=== PATIENT | male | born 1985 | race Caucasian/White ===

== ENCOUNTER 2019-04-17 18:03 | Emergency (ER) | payer OTHER, SELFPAY ==
--- NOTE | 2019-04-17 18:38 | CT ---
CT CERVICAL SPINE NONCONTRAST: HISTORY: cervical trauma FINDINGS: There are no jumped or perched facets. There is no evidence of acute fracture. The vertebral body hei ghts are maintained. There is no prevertebral soft tissue swelling. IMPRESSION: No evidence of acute fracture or acute traumatic subluxation.
--- NOTE | 2019-04-17 18:42 | CT ---
CT BRAIN NONCONTRAST: DATE: 04/17/2019 HISTORY: Head trauma FINDINGS: There is no evidence of acute intra-axial or extra-axial hemorrhage. There is no midline shift or any other mass effect. There is no extra-axial fluid collection. There is no evidence of obstructive hydrocephalus. Calvarium is intact. IMPRESSION: No acute intracranial findings.
--- NOTE | 2019-04-17 18:46 | CT ---
CT maxillofacial noncontrast: HISTORY: 34-year-old male status post acute facial trauma from fall from skateboard. FINDINGS: Mildly comminuted, mildly displaced nasal bone fractures at midline and on the left side. No other fr acture. Left infraorbital and left premaxillary superficial soft tissue hematoma and contusion. Orbits are clear. No air-fluid levels in paranasal sinuses. IMPRESSION: 1. Acute, traumatic, mildly displaced nasal bone fractures. 2. Acute, traumatic left infraorbital and malar superficial soft tissue hematoma.
--- NOTE | 2019-04-17 18:54 | RAD ---
RADIOGRAPH RIGHT AND 3VIEWS: DATE: 04/17/2019 HISTORY: Hand trauma from fall FINDINGS: There is no evidence of fracture or dislocation. There is no evidence of periostitis, permeative lesi on, osteolytic lesion, or osteoblastic lesion. The joint spaces are maintained without erosions or significant osteophytes. IMPRESSION: Normal
--- NOTE | 2019-04-17 18:55 | RAD ---
RADIOGRAPH RIGHT WRIST 3 VIEWS: DATE: 04/17/2019 HISTORY: Wrist trauma from fall FINDINGS: No fracture is identified. However, if there is snuffbox tenderness following trauma that suggests an occult scaphoid fracture, then the general recommendation is immobilization and follow-up imaging in 5-10 days. Alignment is normal. Joint spaces are maintained without erosions or large osteophytes. There are no abnormal soft tissue calcifications. No evidence of periostitis, permeative lesion, osteolytic lesion, or osteoblastic lesion. IMPRESSION: Normal radiograph of wrist.
--- NOTE | 2019-04-17 18:56 | RAD ---
RADIOGRAPH LEFT WRIST 3 VIEWS: DATE: 04/17/2019 HISTORY: 34-year-old male with acute traumatic left wrist pain from fall FINDINGS: No fracture is identified. However, if there is snuffbox tenderness following trauma that suggests an occult scaphoid fracture, then the general recommendation is immobilization and follow-up imaging in 5-10 days. Alignment is normal. Joint spaces are maintained without erosions or large osteophytes. There are no abnormal soft tissue calcifications. No evidence of periostitis, permeative lesion, osteolytic lesion, or osteoblastic lesion. IMPRESSION: Normal radiograph of wrist.
--- NOTE | 2019-04-17 18:58 | RAD ---
RADIOGRAPH LEFT HAND 3VIEWS: DATE: 04/17/2019 HISTORY: 34-year-old male with acute traumatic left hand pain from fall FINDINGS: There is no evidence of fracture or dislocation. There is no evidence of periostitis, permeative lesi on, osteolytic lesion, or osteoblastic lesion. The joint spaces are maintained without erosions or significant osteophytes. IMPRESSION: Normal
--- NOTE | 2019-04-17 19:20 | RAD ---
TWO VIEWS RIGHT ELBOW: 04/17/19 PROVIDED CLINICAL HISTORY: Pain status post injury. FINDINGS: There is no evidence for fracture or other acute osseous abnormality. If there is persistent clinical concern, conservative management and follow-up imaging are advised. IMPRESSION: As above. POS: DIALLO
[2019-04-17] MEDS ORDERED: Lidocaine 1% (PF) 30 ML VIAL ONE (19:23)
--- NOTE | 2019-04-17 19:25 | RAD ---
LEFT ELBOW TWO VIEWS: 04/17/19 PROVIDED CLINICAL HISTORY: Pain status post injury. FINDINGS: No evidence for fracture or other acute osseous abnormality. If there is persistent clinical concern, conservative management and follow-up imaging are advised. IMPRESSION: As above. POS: DIALLO
[2019-04-17] MEDS ORDERED: Adacel (T-DAP) 0.5 ML SYRINGE ONE (19:49)
== END 2019-04-17 20:41 | disposition home or self-care (01) ==
LOC: ERS 18:03
DX: S01.81XA Laceration without foreign body of other part of head, initial encounter (principal); F98.8 Other specified behavioral and emotional disorders with onset usually occurring in childhood and adolescence; Z79.899 Other long term (current) drug therapy; V87.8XXA Person injured in other specified noncollision transport accidents involving motor vehicle (traffic), initial encounter
CPT/HCPCS: 12011; 70450; 70486; 72125; 90471; 90715; J2001; L0120